=== PATIENT | male | born 1955 | race Caucasian/White ===

== ENCOUNTER 2016-03-29 02:13 | Inpatient (IN) | payer MEDICARE ==
[2016-03-29] VITALS (13 sets, daily range): BP systolic 80–119; BP diastolic 68–96; Ht 182.9 cm; Wt 104.0 kg
[~2016-03-29] VITALS: Ht 182.9 cm; Wt 104.0 kg
[~2016-03-29 02:13] MED LIST: CORDARONE200 MG PO; ECOTRIN325 MG PO; GLUCOPHAGE500 MG PO; LASIX40 MG PO; LISINOPRIL-HCTZ1 TA2 PO; LISINOPRIL5 MG PO; LOPRESSOR25 MG PO; POTASSIUM CHLO20 MEQ PO; PRAVACHOL20 MG PO; VITAMIN C1000 MG PO
[2016-03-29] MEDS ORDERED: VOLTAREN25 MG (06:03)
[2016-03-29] MEDS ORDERED: CEFACLOR ER500 MG PO (06:23)
[2016-03-29] MEDS ORDERED: METOLAZONE2.5 MG PO (06:25)
[2016-03-29] MEDS ORDERED: ALDACTONE25 MG PO (06:26)
[2016-03-29] MEDS ORDERED: VALIUM5 MG PO (06:27)
[2016-03-29 06:36] LABS: BASOPHILS 0.2 % (0.0-2.0); EOSINOPHILS 0.5 % (0-7); HEMATOCRIT 43.6 % (42.0-54.0); HEMOGLOBIN 14.1 g/dL (13.5-17.5); IMMATURE GRANULOCYTES 0.2 % (0-5); LYMPHOCYTES 12.4 % (15-50); MCH 29.9 pg (26.0-34.0); MCHC 32.3 g/dL (31.0-37.0); MCV 92.4 fL (80.0-100.0); MEAN PLATELET VOLUME 11.2 fL (7.4-10.4); MONOCYTES 8.9 % (2-11); NEUTROPHILS 77.8 % (40-80); PLATELET COUNT 168 10x3/uL (130-400); RBC 4.72 10x6/uL (4.20-6.10); RDW 13.3 % (11.5-14.5); WBC 8.5 10x3/uL (4.8-10.8)
[2016-03-29 07:13] LABS: ALBUMIN 3.7 g/dL (3.4-5.0); ANION GAP 12.4 mmol/L (8-16); BILIRUBIN - TOTAL 0.4 mg/dL (0.2-1.3); CALCIUM 8.3 mg/dL (8.5-10.1); CARBON DIOXIDE 27.1 mmol/L (21.0-32.0); CREATININE - SERUM 1.3 mg/dL (0.6-1.3); MAGNESIUM - SERUM 2.2 mg/dL (1.8-2.4); PHOSPHOROUS 4.2 mg/dL (2.5-4.9); POTASSIUM - SERUM 4.5 mmol/L (3.5-5.1); PROTEIN - SERUM 6.3 g/dL (6.4-8.2)
--- NOTE | 2016-03-29 08:25 | NUR ---
DR. CONTE AT BEDSIDE.
--- NOTE | 2016-03-29 10:38 | NUR ---
Question Answer Score * Is the patient Alert and Oriented? Yes 0 * How many steps to enter\exit or inside your home? 3 0 * PCP DR. IRWIN IN [place] 0 * Pharmacy [facility] 0 * Preadmission Environment Home with Family 0 * ADLs Independent 0 * Equipment Cane Walker 0 * Other Equipment PATIENT STATES HE HAS A WALKER AND CANE BUT DOES NOT USE EITHER OF THEM 0 * List name and contact numbers for known caregivers / representatives who currently or will assist patient after discharge: SPOUSE: ANTONIO [phone] 0 * Community resources currently utilized None 0 * Additional services required to return to the preadmission environment? No 0 * Can the patient safely return to the preadmission environment? Yes 0 * Has this patient been hospitalized within the prior 30 days at any hospital? No PATIENT STATES HE LIVES AT HOME WITH HIS , ANTONIO. SHE WILL BE AVAILABLE TO DRIVE HIM HOME AT DISCHARGE. PATIENT STATES HIS PCP IS DR. IRWIN IN [place]. HE GETS HIS MEDS FROM [facility] IN [place]. PATIENT HAS A WALKER AND CANE BUT DOES NOT USE THEM. HE STATES HE THINKS HE HAD HOME HEALTH IN THE PAST BUT DOES NOT RECALL THE NAME OF THE AGENCY. THERE ARE 3 STEPS TO ENTER HIS HOME. NO DISCHARGE NEEDS IDENTIFIED AT THIS TIME. CM TO FOLLOW.
--- NOTE | 2016-03-29 12:25 | NUR ---
PACEMAKER ADJUSTED BY [employer] TECH WITH DR. CONTE AT BEDSIDE AND JEWELRY STORE MANAGER RN TO ASSIST.
--- NOTE | 2016-03-29 12:53 | NUR ---
REMAINS IN SR RATE OF 60. BP STABLE.
--- NOTE | 2016-03-29 16:27 | NUR ---
DC INSTRUCTIONS REVIEWED WITH PT AND . NO FURTHER QUESTIONS. IV'S DC'D TIMES 2 CATHS FULLY INTACT. PT DC'D HOME WITH FAMILY.
--- NOTE | 2016-04-01 13:25 | OP ---
PATIENT NAME: AUDI WONG MEDICAL RECORD: [id number] :51 LOCATION:[facility] D.2301 ADMISSION DATE:03/29/16 SURGEON: JUAN GERARDO MD DATE OF OPERATION: 03/29/2016 DESCRIPTION OF PROCEDURE: After backup pads were placed for emergent cardioversion if necessary, using vertical cyclings, the right ventricle was paced at a rate of 140 to 160. At the rate of 170, we were finally able to terminate. Ventricular tachycardia and normal sinus rhythm, baseline parameters were rechecked and the pacemaker was reset. IMPRESSION: Successful patient examination of ventricular tachycardia. COMPLICATIONS: None. TRANSINT:[id number] Voice Confirmation ID: [id number] DOCUMENT ID: [id number] JUAN GERARDO MD at 1325 CC: [id number] DICTATION DATE: 03/29/16 1255 SIGNALING PROJECT ENGINEER: 03/29/162108 DIS IN 03/29/16 [facility] [address] [place] [address]
== END 2016-03-29 16:45 | disposition home or self-care (01) | DRG 309 ==
LOC: D.ICU 02:13
PROVIDERS: ADMIT Internal Medicine Cardiovascular Disease
PROC: 4A02X4Z Measurement of Cardiac Electrical Activity, External Approach (ICD-10-PCS; principal; 2016-03-29)
DX: I47.2 Ventricular tachycardia (principal); I42.9 Cardiomyopathy, unspecified; R55 Syncope and collapse; I25.10 Atherosclerotic heart disease of native coronary artery without angina pectoris; I48.91 Unspecified atrial fibrillation; I10 Essential (primary) hypertension; E78.5 Hyperlipidemia, unspecified; E11.9 Type 2 diabetes mellitus without complications; Z95.1 Presence of aortocoronary bypass graft; Z95.0 Presence of cardiac pacemaker; Z95.5 Presence of coronary angioplasty implant and graft; Z72.0 Tobacco use

== ENCOUNTER 2017-11-20 03:26 | Inpatient (IN) | payer MEDICARE ==
[~2017-11-20] VITALS: Ht 182.9 cm; Wt 101.0 kg
--- NOTE | ~2017-11-20 | EC ---
PATIENT:AUDI WONG DATE OF SERVICE: 11/20/17 SEX: M MEDICAL RECORD: [id number] DATE OF : [birth year] LOCATION:D.M2 D.210 AGE OF PATIENT: 62 ADMISSION DATE: 11/20/17 REFERRING PHYSICIAN: INTERPRETING PHYSICIAN: JOSE HARDEN MD ECHOCARDIOGRAM REPORT ECHO CHARGES 4 ECHO COMPLETE Date: 11/21/17 CLINICAL DIAGNOSIS: CHF ECHOCARDIOGRAPHIC MEASUREMENTS (adult normal given) AC root (d.<3.7cm) 3.8 cm LV Septum d (<1.2 cm> 1.4 cm Valve Excursion 2.0 cm LV Septum (systole) 1.5 cm Left Atria (s.<4.0cm> 4.6 cm LVPW d(<1.2cm) 1.2 cm RV (d.<2.3cm) 2.9 cm LVPW (sytole) 1.5 cm LV diastole(<5.6CM) 7.5 cm MV E-F(>70mm/sec) cm LV systole 6.6 cm LVOT Diameter 2.1 cm MV exc.(>10mm) cm Est.ejection fraction (50-75%) % DOPPLER: LVIT cm/sec A cm/sec E 128 cm/sec LA cm/sec RVSP 44.0 mmHg LVOT 46.0 cm/sec AOP1/2T m/s Asc. Ao 89.0 cm/sec RVOT 56.0 cm/sec RA cm/sec PA 54.0 cm/sec AV Gradient Peak 3.2 mmHg AV Mean 1.7 mmHg AV Area 1.9 cm MV Gradient Peak 7.6 mmHg MV Mean 1.7 mmHg MV Area cm COMMENTS: Recovery Unit Operator: Joana HAILEOE [employer]: 1 Dr. Harden TAPE# PACS Pericardial Effusion N DATE OF SERVICE: 11/21/2017 PROCEDURE: Echocardiogram. FINDINGS: 1. Left ventricular chamber size is within normal limits. Left ventricular chamber size is moderately dilated. Left ventricular systolic function is markedly reduced, overall ejection fraction estimated 20%. There is global hypokinesis throughout all segments with no discrete wall motion abnormalities present. ECHOCARDIOGRAM REPORT [id number] AUDI WONG 2. Left atrium is enlarged at 4.6 cm. Right atrium and right ventricle chamber sizes are as well dilated giving 4-chamber dilatation. 3. Valvular structures have normal structure and motion. 4. Doppler interrogation reveals moderate mitral regurgitation, moderate tricuspid regurgitation, no other valvular insufficiency or stenosis. Pulmonary systolic pressure is estimated at 44 mmHg. 5. No evidence of pericardial effusion or left ventricular thrombus. TRANSINT:[id number] Voice Confirmation ID: [id number] DOCUMENT ID: [id number] JOSE HARDEN MD at 1616 CC: [id number] DICTATION DATE: 11/21/17 1256 NEUROLOGY STROKE PHYSICIAN: 11/21/17 1303 ADM IN [place] [id number] [place] [id number]
[~2017-11-20 03:26] MED LIST changes: +ALDACTONE25 MG PO; +CEFACLOR ER500 MG PO; +METOLAZONE2.5 MG PO; +VALIUM5 MG PO; +VOLTAREN25 MG
[2017-11-20] MEDS ORDERED: BUMEX2 MG PO (03:29)
[2017-11-20] MEDS ORDERED: VOLTAREN75 MG PO (03:31)
[2017-11-20 04:00] VITALS: BP 109/75
[2017-11-20 04:59] LABS: BASOPHILS 0.1 % (0-2); EOSINOPHILS 0.2 % (0-7); HEMATOCRIT 36.4 % (42.0-54.0); HEMOGLOBIN 12.2 g/dL (13.5-17.5); IMMATURE GRANULOCYTES 0.2 % (0-5); LYMPHOCYTES 5.4 % (15-50); MCH 30.3 pg (26.0-34.0); MCHC 33.5 g/dL (31.0-37.0); MCV 90.5 fL (80.0-100.0); MEAN PLATELET VOLUME 11.9 fL (7.4-10.4); MONOCYTES 0.9 % (2-11); NEUTROPHILS 93.2 % (40-80); PLATELET COUNT 136 10x3/uL (130-400); RBC 4.02 10x6/uL (4.20-6.10); RDW 13.3 % (11.5-14.5); WBC 8.7 10x3/uL (4.8-10.8)
[2017-11-20 05:00] VITALS: BP 113/72
[2017-11-20 05:10] LABS: ALBUMIN 3.6 g/dL (3.4-5.0); ALKALINE PHOSPHATASE 64 U/L (46-116); ALT (SGPT) 28 U/L (10-68); BILIRUBIN - TOTAL 1.06 mg/dL (0.2-1.3); CALC OSMOLALITY 287 mosm/kg (275-300); CARBON DIOXIDE 26.7 mmol/L (21.0-32.0); CHLORIDE - SERUM 97 mmol/L (98-107); CREATININE - SERUM 2.3 mg/dL (0.6-1.3); GLUCOSE 253 mg/dL (74-106); POTASSIUM - SERUM 3.8 mmol/L (3.5-5.1); PROTEIN - SERUM 6.7 g/dL (6.4-8.2); SODIUM 134 mmol/L (136-145); UREA NITROGEN 42 mg/dL (7-18); eGFR NON AFRICAN AMERICAN 30 mL/min (90-120)
[2017-11-20 05:22] LABS: CKMB 1.9 U/L (0.0-3.6); PRO BNP 8563 pg/mL (0-125); TROPONIN-I 0.016 ng/mL (0.000-0.060)
[2017-11-20 06:00] VITALS: BP 119/87
[2017-11-20 14:34] VITALS: BP 112/78; BMI 31.3
[2017-11-20 21:38] VITALS: BP 105/73
[2017-11-21 04:12] LABS: BASOPHILS 0 % (0-2); EOSINOPHILS 0.2 % (0-7); HEMOGLOBIN 11.8 g/dL (13.5-17.5); IMMATURE GRANULOCYTES 0.2 % (0-5); LYMPHOCYTES 10.2 % (15-50); MCH 30.2 pg (26.0-34.0); MCHC 33.7 g/dL (31.0-37.0); MCV 89.5 fL (80.0-100.0); MEAN PLATELET VOLUME 12.1 fL (7.4-10.4); MONOCYTES 6.7 % (2-11); NEUTROPHILS 82.7 % (40-80); PLATELET COUNT 140 10x3/uL (130-400); RBC 3.91 10x6/uL (4.20-6.10); RDW 13.5 % (11.5-14.5)
[2017-11-21 04:39] LABS: ALBUMIN 3.4 g/dL (3.4-5.0); ANION GAP 13.8 mmol/L (8-16); BILIRUBIN - TOTAL 1.08 mg/dL (0.2-1.3); CALCIUM 8.5 mg/dL (8.5-10.1); CARBON DIOXIDE 28.3 mmol/L (21.0-32.0); CREATININE - SERUM 1.9 mg/dL (0.6-1.3); MAGNESIUM - SERUM 1.9 mg/dL (1.8-2.4); POTASSIUM - SERUM 4.1 mmol/L (3.5-5.1); PROTEIN - SERUM 6.6 g/dL (6.4-8.2)
[2017-11-21 06:28] VITALS: BP 105/75
[2017-11-21 08:31] VITALS: BP 110/72
[2017-11-21 10:30] VITALS: BMI 31.2
[2017-11-21 11:12] VITALS: Ht 182.9 cm; Wt 101.0 kg
[2017-11-21 14:12] VITALS: BP 107/76
[2017-11-21 14:35] LABS: APPEARANCE CLEAR (CLEAR); BILIRUBIN NEGATIVE (NEGATIVE); COLOR YELLOW (YELLOW); GLUCOSE 250 mg/dL (NEGATIVE); KETONE NEGATIVE (NEGATIVE); NITRITE NEGATIVE (NEGATIVE); PROTEIN NEGATIVE (NEGATIVE); SPECIFIC GRAVITY 1.015 (1.005-1.020)
[2017-11-21 16:20] VITALS: BP 113/67
[2017-11-21 21:10] VITALS: BP 115/70
[2017-11-22 01:02] VITALS: BP 102/64
[2017-11-22 04:43] LABS: BASOPHILS 0.4 % (0-2); EOSINOPHILS 3.6 % (0-7); HEMOGLOBIN 11.8 g/dL (13.5-17.5); IMMATURE GRANULOCYTES 0.1 % (0-5); LYMPHOCYTES 17.5 % (15-50); MCH 30.5 pg (26.0-34.0); MCHC 33.7 g/dL (31.0-37.0); MCV 90.4 fL (80.0-100.0); MEAN PLATELET VOLUME 11.6 fL (7.4-10.4); MONOCYTES 6.6 % (2-11); NEUTROPHILS 71.8 % (40-80); PLATELET COUNT 130 10x3/uL (130-400); RBC 3.87 10x6/uL (4.20-6.10); RDW 13.7 % (11.5-14.5); WBC 7.1 10x3/uL (4.8-10.8)
[2017-11-22 05:11] LABS: ALBUMIN 3.5 g/dL (3.4-5.0); ANION GAP 13.9 mmol/L (8-16); BILIRUBIN - TOTAL 1.13 mg/dL (0.2-1.3); CALCIUM 8.6 mg/dL (8.5-10.1); CARBON DIOXIDE 29.6 mmol/L (21.0-32.0); CREATININE - SERUM 1.8 mg/dL (0.6-1.3); MAGNESIUM - SERUM 2.3 mg/dL (1.8-2.4); POTASSIUM - SERUM 3.5 mmol/L (3.5-5.1); PROTEIN - SERUM 6.5 g/dL (6.4-8.2)
[2017-11-22 05:51] VITALS: BP 115/71
[2017-11-22 08:30] VITALS: BP 106/60
[2017-11-22 12:58] VITALS: BP 123/83
[2017-11-22 21:12] VITALS: BP 122/75
[2017-11-23 00:20] VITALS: BP 114/78
[2017-11-23 04:57] LABS: BASOPHILS 0.7 % (0-2); EOSINOPHILS 4.9 % (0-7); HEMATOCRIT 35.6 % (42.0-54.0); HEMOGLOBIN 11.7 g/dL (13.5-17.5); IMMATURE GRANULOCYTES 0.2 % (0-5); LYMPHOCYTES 18.2 % (15-50); MCH 29.8 pg (26.0-34.0); MCHC 32.9 g/dL (31.0-37.0); MCV 90.6 fL (80.0-100.0); MEAN PLATELET VOLUME 11.5 fL (7.4-10.4); MONOCYTES 5.4 % (2-11); NEUTROPHILS 70.6 % (40-80); PLATELET COUNT 129 10x3/uL (130-400); RBC 3.93 10x6/uL (4.20-6.10); RDW 13.5 % (11.5-14.5); WBC 6.2 10x3/uL (4.8-10.8)
[2017-11-23 05:13] LABS: ALBUMIN 3.3 g/dL (3.4-5.0); ANION GAP 11.6 mmol/L (8-16); BILIRUBIN - TOTAL 1.24 mg/dL (0.2-1.3); CALCIUM 8.3 mg/dL (8.5-10.1); CARBON DIOXIDE 30.5 mmol/L (21.0-32.0); CREATININE - SERUM 1.4 mg/dL (0.6-1.3); MAGNESIUM - SERUM 2.1 mg/dL (1.8-2.4); POTASSIUM - SERUM 3.1 mmol/L (3.5-5.1); PROTEIN - SERUM 6.4 g/dL (6.4-8.2)
[2017-11-23 05:44] VITALS: BP 131/74
[2017-11-23 13:33] VITALS: BP 110/79
[2017-11-23] MEDS ORDERED: COREG6.25 MG PO (14:21)
[2017-11-23] MEDS ORDERED: Lantus Solostar PEN SC (14:23)
[2017-11-23] MEDS ORDERED: XANAX0.25 MG PO (15:42)
== END 2017-11-23 17:53 | disposition home or self-care (01) | DRG 682 ==
LOC: D.ER 03:26 → D.M2 05:46 → D.EDHOLD 05:46 → D.M2 12:32
PROVIDERS: Family Medicine; Internal Medicine
DX: N17.9 Acute kidney failure, unspecified (principal); I50.43 Acute on chronic combined systolic (congestive) and diastolic (congestive) heart failure; I42.9 Cardiomyopathy, unspecified; I11.0 Hypertensive heart disease with heart failure; I25.10 Atherosclerotic heart disease of native coronary artery without angina pectoris; E11.65 Type 2 diabetes mellitus with hyperglycemia; I08.1 Rheumatic disorders of both mitral and tricuspid valves; Z95.5 Presence of coronary angioplasty implant and graft; Z95.1 Presence of aortocoronary bypass graft; Z95.0 Presence of cardiac pacemaker

== ENCOUNTER 2017-12-31 14:05 | Observation (INO) | payer MEDICARE ==
[~2017-12-31] VITALS: Ht 182.9 cm; Wt 100.9 kg
--- NOTE | ~2017-12-31 | DS ---
PATIENT:AUDI WONG :51 MEDICAL RECORD: [id number] DISCHARGE SUMMARY ADMISSION DATE: 12/31/17 DISCHARGE DATE: 01/01/18 DIAGNOSES: 1. Congestive heart failure, chronic systolic dysfunction. 2. Cardiomyopathy. 3. Shortness of breath, dyspnea on exertion. 4. Edema. 5. Coronary artery disease. 6. Sick sinus syndrome. 7. Status post pacemaker. HOSPITAL COURSE: Mr. Wong presents with decompensated congestive heart failure. He has a known cardiomyopathy. He is having no anginal symptomatology. He was admitted. He received IV diuresis. Symptomatology improved. He had no further shortness of breath, could lie flat. He had improvement in his peripheral edema. We put him back to the Bumex 1 mg p.o. b.i.d. He will follow up with Dr. Hussein in [place] for evaluation for Bi-V ICD. TRANSINT:[id number] Voice Confirmation ID: [id number] DOCUMENT ID: [id number] JOSE CHÁVEZ MD at 0918 CC: [id number] DICTATION DATE: 01/01/18 1246 NECK CUTTER: 01/01/18 2143 DIS IN 01/01/18 [facility] [address] [place] [address]
--- NOTE | ~2017-12-31 | MORECARE ---
CASE MANAGEMENT DISCHARGE SUMMARY PATIENT: AUDI WONG UNIT: [id number] ADM DATE: 12/31/17 AGE: 62 : [birth year] SEX: M ROOM/BED: D.2123 AUTHOR: TOYA OLIVAREZ PHYSICIAN: REFERRING PHYSICIAN: JOSE CHÁVEZ MD DATE OF SERVICE: 01/02/18 Discharge Plan Patient Name: AUDI WONG [facility] [facility] 1955 Planned Disposition: Home Anticipated Discharge Date: 01/01/18 Discharge Date: 01/01/2018 Expected LOS: 1 Initial Reviewer: [email or web address] Initial Review Date: 01/02/2018 Generated: 01/02/18 10:05 am Patient Name: AUDI WONG Page [id number] at 0905 All edits/amendments must be made on the electronic document DICTATION DATE: 01/02/18904 CREATIVE DEVELOPER: BREEZY 01/02/18904 RPT#: [id number] DC DATE:01/01/18 STATUS: DIS IN [facility] [address] [place] [address] END OF REPORT
[~2017-12-31 14:05] MED LIST changes: +BUMEX2 MG PO; +COREG6.25 MG PO; +Lantus Solostar PEN SC; +VOLTAREN75 MG PO; +XANAX0.25 MG PO
[2017-12-31] MEDS ORDERED: GLUCOPHAGE1000 MG PO (17:36)
[2017-12-31] MEDS ORDERED: LANOXIN125 MCG PO (17:37)
[2017-12-31] MEDS ORDERED: PRAVASTATIN SOD10 MG PO (17:40)
[2017-12-31] MEDS ORDERED: POTASSIUM CHLOR8 ME1 PO (17:40)
[2017-12-31 18:22] VITALS: BP 142/37; Ht 182.9 cm; Wt 100.9 kg
[2017-12-31 18:41] LABS: ANION GAP 12.3 mmol/L (8-16); CALCIUM 8.9 mg/dL (8.5-10.1); CARBON DIOXIDE 33.2 mmol/L (21.0-32.0); CREATININE - SERUM 1.4 mg/dL (0.6-1.3); DIGOXIN 0.36 ng/mL (0.90-2.00); POTASSIUM - SERUM 3.5 mmol/L (3.5-5.1)
[2017-12-31 20:00] VITALS: BP 105/72
[2018-01-01] VITALS: BP 104/68
[2018-01-01 04:00] VITALS: BP 92/62
[2018-01-01] MEDS ORDERED: VALIUM5 MG PO (09:15)
== END 2018-01-01 14:26 | disposition home or self-care (01) ==
LOC: D.SDCHOLD 14:05 → D.M2 14:05 → OBSVTIME 14:13 → D.M2 16:04
PROVIDERS: Internal Medicine Interventional Cardiology
DX: I50.23 Acute on chronic systolic (congestive) heart failure (principal); I42.9 Cardiomyopathy, unspecified; I25.10 Atherosclerotic heart disease of native coronary artery without angina pectoris; Z95.0 Presence of cardiac pacemaker